=== PATIENT | female | born 1945 | race Caucasian/White ===

== ENCOUNTER 2016-09-15 21:02 | Emergency (ER) | payer MEDICARE ==
[~2016-09-15] VITALS: Ht 154.9 cm; Wt 73.5 kg
[~2016-09-15 21:02] MED LIST: CETI10CA19 PO; DILT180C51 PO; FISH1CAP28; FLUT16SP NS; IBUP200C62 PO; LACT1CAP72; LEVO125T71 PO; OMEP20TA24 PO; OSEL75CA PO; POLY30DR BOTH EYES; THRIVE VITAMINS PO; VENL150C42 PO
[2016-09-15 21:05] VITALS: Ht 154.9 cm; Wt 73.5 kg
--- OUTSIDE RECORDS SUMMARY | 2016-09-15 21:06 | XMS REPORT | Continuity of Care Document ---
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 Name Role Phone ROSEANNE GARCIA MD Primary Care Physician [phone] Insurance Providers Guarantor Katherine Vo Address [address] [place] [address] CP Email [email or web address] Payer Medicarehumana Gold Hmo Policy Number [id number] Subscriber's Name Katherine Vo Relationship 16 Self Chief Complaint and Reason for Visit Chief Complaint Cough,Fever,Flu,URI Reason for Visit [id number] Problems Past Problems Medical Problem Onset Date Acute bacterial tonsillitis Unknown Forehead contusion Unknown Influenza A Unknown Proximal humerus fracture Unknown Medications Current Home Medications Medication Dose Units Route Directions Days Qty Instructions Start Date Cetirizine Hcl (Zyrtec) 10 Mg Capsule 10 Mg Oral Daily 12/09/15 Diltiazem Hcl (Cartia Xt) 180 Mg Capsule 180 Mg Oral Bedtime Fluticasone Propionate (Fluticasone Prop 50 Mcg/Actuation Nasal [place]) 120 [place]/16 G [place] 1 [place] Nasal As Needed 12/09/15 Ibuprofen 200 Mg Capsule 2 Cap Oral Every 4 Hours as needed for Pain 12/09/15 Lactobacillus Combo No.11 (Probiotic) 1 Each Cap.sprink 06/15/16 Levothyroxine Sodium 125 Mcg Tablet 125 Mcg Oral Daily 03/18/09 [place]-3 Fatty Acids/Fish Oil ([place] 3 1,000 Mg Softgel) 1 Each Capsule Unknown Dose 03/27/16 Omeprazole (Prilosec) 20 Mg Tablet. 20 Mg Oral Daily 03/18/09 Oseltamivir Phosphate (Tamiflu) 75 Mg Capsule 75 Mg Oral Twice A Day 5 Days 10 Capsule 06/15/16 Polyvinyl Alcohol/Povidone/Pf (Refresh Classic Eye Drops) 1 Each Droperette 1 Drop Both Eyes Daily as needed for Dry Eyes 12/09/15 Thrive Vitamins Tab Oral Daily 12/09/15 Venlafaxine Hcl (Effexor Xr) 150 Mg Cap.sr.24h 150 Mg Oral Bedtime 03/18/09 Social History Social History Problem Response Recorded Date/Time Onset Date Status Hx Alcohol Use No 12/09/2015 10:17am Not Applicable Not Applicable Tobacco Usage none 12/09/2015 10:35am Not Applicable Not Applicable Hospital Discharge Instructions No hospital discharge instructions. Plan of Care Discharge Date 06/15/16 11:53am Disposition 01 DISCHARGED HOME, SELF-CARE Condition at Discharge Stable Instructions/Education Provided Influenza (ED) Prescriptions See Medication Section Referrals ROSEANNE GARCIA MD Address: [address] [place] [address] [id number] Functional Status No functional status results. Allergies, Adverse Reactions, Alerts Allergen Type Severity Reaction Status Last Updated Cefaclor Allergy Unknown Active 06/15/16 Clindamycin Allergy Unknown Active 06/15/16 Amoxicillin Allergy Unknown Active 06/15/16 Immunizations Query Response on File Recorded Date/Time Hx Influenza Vaccination Y fall01/11/13 6:00pm Hx Pneumococcal Vaccination Y fall01/11/13 6:00pm Hx Tetanus, Diptheria, Pertussis N NOT CURRENT 01/11/13 6:00pm Hx Influenza Vaccination Y fall01/11/13 6:00pm Hx Tetanus, Diptheria, Pertussis N NOT CURRENT 01/11/13 6:00pm Hx Tetanus Toxoid Vaccination Yes 01/11/13 5:27pm Tdap Vaccine Hx NO SKIN DISRUPTIONS 12/09/15 9:23am Vital Signs Acute Vital Signs Vital Response Date/Time Temperature (Fahrenheit) 97.0 deg F (96.8 - 99.1) 06/15/2016 11:34am Temperature (Calculated Celsius) 36.46747 degrees C (36.0 - 37.3) 06/15/2016 11:34am Pulse Rate (adult) 73 bpm (60 - 100) 06/15/2016 11:34am Respiratory Rate 24 breaths/min (10 - 20) 03/27/2016 11:42am O2 Sat by Pulse Oximetry 95 % (90 - 100) 06/15/2016 11:34am Blood Pressure 135/82 mm Hg 06/15/2016 11:34am Height (Inches) 60.50 inches 06/15/2016 11:34am Weight (Kilograms) 75.700 kg 06/15/2016 11:34am Body Mass Index (BMI) 32.0 06/15/2016 11:34am Results Laboratory Results Test Name Result Units Flags Reference Collection Date/Time Result Date/ Time Comments Group A Streptococcus Screen NEGATIVE NEGATIVE 03/27/2016 11:56am 03/2016 12:12pm Influenza Type A Antigen POSITIVE H NEGATIVE 06/15/2016 11:43am 2016 11:58am If clinical symptoms do not support these results, consider ordering the "Respiratory Panel, PCR". Influenza Type B Antigen NEGATIVE NEGATIVE 06/15/2016 11:43am 2016 11:58am Negative for Flu B protein antigen. Assay sensitivity is 90%. Procedures Procedure Status Date Provider(s) Dxa bone density axial Completed 05/26/16 Encounters Encounter Location Arrival/Admit Date Discharge/Depart Date Attending Provider Departed Emergency Room [facility] 06/15/16 11:19am 06/15/16 11: 53am SUZI URBAN APRN Registered Clinic [facility] 05/26/16 1:25pm ROBYN NIEVES Departed Emergency Room [facility] 03/27/16 11:30am 03/27/16 12: 22pm SUZI URBAN APRN Recent Diagnosis
--- NOTE | 2016-09-15 21:20 | ERPDOC ---
Departure Disposition Decision Date: September 15, 2016 Disposition Decision Time: 21:51 (SUBHA NAVARRETE APRN) Disposition: 01 DISCHARGED HOME, SELF-CARE Impression Impression (SUBHA NAVARRETE APRN) Impression: Primary Impression: UTI (urinary tract infection) Severity: Mild (SUBHA NAVARRETE APRN) Condition: Stable Seen By: Mid-level only (SUBHA NAVARRETE APRN) Referrals: ROSEANNE GARCIA MD (PCP) Patient Instructions: Urinary Tract Infection in Women (ED) Problems/Meds/Labs Reviewed?: Yes Medications reviewed and manag: Yes (SUBHA NAVARRETE APRN) Additional Instructions: 1. Drink plenty of liquids to maintain hydration. 2. Take Pyridium three times daily as needed for bladder pain for 2 days 3. Return to see your doctor if you develop fever, abdominal pain, nausea/ vomiting. Follow up care ordered?: Yes Mental Status: Alert, Oriented (SUBHA NAVARRETE APRN) Scripts Phenazopyridine HCl (Pyridium) 100 Mg Tablet 95 MG PO TID for 2 Days, #6 TAB Prov: SUBHA NAVARRETE APRN 09/15/16 Nitrofurantoin Monohyd/M-Cryst (Macrobid 100 mg Capsule) 100 Mg Capsule 1 CAP PO BIDWM for 7 Days, #14 CAP Take 2 (100 mg) capsules, by mouth, twice daily with meals. Prov: SUBHA NAVARRETE APRN 09/15/16 HPI - Female General Stated Complaint: POSS UTI Time Seen by Provider: 21:15 Source: patient Exam Limitations: no limitations (SUBHA NAVARRETE APRN) Time Seen by Provider: 21:15 (COURTNEY HOWARD DO) HPI - Female Initial Comments Ms. Leavitt is a 71 year old spry female who developed dysuria yesterday. Today went to work around 1300 and felt like she would be okay, but symptoms became worse. Urine frequency increased. No fever. No n/v. No abdominal pain. 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 Occurred At: home Onset: Getting worse Duration: other (2 days) Severity/Quality: burning Location: urethral Radiation: none Activities at Onset: none Associated Symptoms: dysuria Hx of Similar Symptoms: Yes (SUBHA NAVARRETE APRN) Allergies: Coded Allergies: amoxicillin (Verified Allergy, Unknown, 09/15/16) cefaclor (Verified Allergy, Unknown, 09/15/16) clindamycin (Verified Allergy, Unknown, 09/15/16) Past History Past Medical History Metabolic: hypertension, hypothyroidism ENMT: other (macular degeneration) Hx Echocardiogram: No Respiratory: other (chronic bronchitis) Psychological: anxiety (SUBHA NAVARRETE APRN) Surgical History General: EGD, colonoscopy, gallbladder, hernia (SUBHA NAVARRETE APRN) Vaccines Hx Influenza Vaccination: Yes (fall) Hx Pneumococcal Vaccination: Yes (fall) Hx Tetanus, Diptheria, Pertuss: No (NOT CURRENT) (SUBHA NAVARRETE APRN) Social History Smoking Status: Never smoker Substance Use Type: does not use Alcohol Intake: none Current Occupational Status: employed (SUBHA NAVARRETE APRN) Review of Systems Constitutional Constitutional: DENIES: fever (SUBHA NAVARRETE PODOPEDIATRICIAN) Cardiovascular Cardiac: DENIES: chest pain (SUBHA NAVARRETE PODOPEDIATRICIAN) Pulmonary Respiratory: DENIES: dyspnea (USBHA NAVARRETE PODOPEDIATRICIAN) GI Upper Abdomen: DENIES: nausea, vomiting (SUBHA NAVARRETE PODOPEDIATRICIAN) General: cloudy urine, dysuria, frequency, DENIES: hematuria (SUBHA NAVARRETE PODOPEDIATRICIAN) Musculoskeletal General: pain (low back ), tenderness (SUBHA NAVARRETE PODOPEDIATRICIAN) Integumentary Skin: DENIES: rash (SUBHA NAVARRETE PODOPEDIATRICIAN) All other Systems All Other Systems: Reviewed and Negative (SUBHA NAVARRETE APRN) Physical Exam General General Nourishment: well nourished, well developed, appears stated age, no acute distress (SUBHA NAVARRETE APRN) Vitals and Pain First Documented Vital Signs Date Time Temp Pulse Resp B/P Pulse Ox O2 Delivery O2 Flow Rate FiO2 09/15/16 21:05 98.3 110 18 162/81 94 Room Air (COURTNEY HOWARD DO) Vitals and Pain Weight: Kilograms: Height (feet): 5 Height (inches): 60.50 Triage Pain Scale: (SUBHA NAVARRETE APRN) ENMT (brief) ENMT Brief: FOUND: mucosa moist (SUBHA NAVARRETE APRN) Respiratory (brief) Respiratory: FOUND: clear all archer, equal bilaterally (NAVARRETE,SUBHA PODOPEDIATRICIAN) Cardiovascular (brief) Cardiac: FOUND: regular rate, regular rhythm (NAVARRETE,SUBHA PODOPEDIATRICIAN) Abdomen (brief) Abdominal Brief: FOUND: bowel normo active x4, soft, NOT FOUND: tender (ROSALBA, SUBHA PODOPEDIATRICIAN) Lymphatic (brief) Lymphatic Brief: NOT FOUND: lymphedema (NAVARRETE,SUBHA PODOPEDIATRICIAN) Musculoskeletal (brief) Musculoskeletal Brief: NOT FOUND: tenderness (MAN NAVARRETEARA PODOPEDIATRICIAN) Integumentary (brief) Integumentary Brief: FOUND: dry, pink, warm, NOT FOUND: rash (NAVARRETE,SUBHA PODOPEDIATRICIAN) Psychiatric (brief) Psychiatric Brief: FOUND: alert, attentive, normal affect, oriented (SUBHA NAVARRETE PODOPEDIATRICIAN) Progress Results/Orders Orders Procedure Category Date Status Time UA, LAB 09/15/16 Complete Dip&Micro(Complete) & 21:20 Urine Culture МАРИЯ 09/15/16 In Process 21:44 Phenazopyridine Hcl PHA 09/15/16 Complete (Pyridium Eq.) 22:00 Nitrofurantoin PHA 09/15/16 Complete (Macrobid) (Macrobid) 22:00 Nitrofurantoin PHA 09/15/16 Complete (Perpack) (Macrobid 22:00 (COURTNEY HOWARD DO) Lab Results Laboratory Tests Test 09/15/16 21:20 Urine Collection Type Urine Color Yellow Urine Turbidity Cloudy Urine pH 5.5 Urine Specific [place] >=1.030 Urine Protein 2+ Urine Glucose (UA) Negative Urine Ketones Negative Urine Blood 3+ Urine Nitrite Positive Urine Bilirubin Negative Urine Urobilinogen 0.2EU/DL Urine Leukocyte Esterase Trace Urine RBC 50-200/HPF Urine WBC 50-200/HPF Urine WBC Clumps Moderate Urine Bacteria 2+ Urine Culture Indicated Cult reflexed &setup (COURTNEY HOWARD DO) Medications Current ED Medications Phenazopyridine HCl (Pyridium Eq.) 95 mg O ONCE PO ; Start 09/15/16 at 22:00; Stop 09/15/16 at 22:01; Status DC Nitrofurantoin Macrocrystals (Macrobid) 100 mg O ONCE PO ; Start 09/15/16 at 22: 00; Stop 09/15/16 at 22:00; Status DC Nitrofurantoin Macrocrystals (MACROBID (PrePack)) 1 pack O ONCE SENT HOME ; Start 09/15/16 at 22:00; Stop 09/15/16 at 22:01; Status DC (COURTNEY HOWARD DO) Progress Progress First dose of Macrobid given in addition to a dose of Pyridium in ED. Rx to follow. (SUBHA NAVARRETE APRN) SUBHA NAVARRETE APRN September 15, 2016 21:20 COURTNEY HOWARD DO September 15, 2016 22:08
[2016-09-15 21:30] LABS: BLOOD, URINE 3+ (NEGATIVE); COLOR,URINE YELLOW (YELLOW); LEUKOCYTE ESTERASE ,URINE TRACE (NEGATIVE); NITRITE,URINE POSITIVE (NEGATIVE); UROBILINOGEN,URINE 0.2 EU/DL (NORMAL)
[2016-09-15 21:42] LABS: WBC CLUMPS,URINE MODERATE; WBC,URINE 50-200 /HPF (0-5)
[2016-09-15 21:43] LABS: BACTERIA,URINE 2+ (NEGATIVE); RBC,URINE 50-200 /HPF (0-3)
[2016-09-15] MEDS ORDERED: PHEN-778 PO (21:49)
[2016-09-15] MEDS ORDERED: NITR100C4 PO (21:49)
[2016-09-15] MEDS ORDERED: PHENAZOPYRIDINE 95 MG TABLET PO ONE (22:00)
[2016-09-15] MEDS ORDERED: NITROFURANTOIN (Macrobid) 100mg CAP PO ONE (22:00)
[2016-09-15] MEDS ORDERED: MACROBID 100mg #2 (PrePack) SENT HOME ONE (22:00)
[2016-09-15 22:17] VITALS: BP 145/83; PULSE 104; RESP 18; TEMP 98.3; O2SAT 94
--- NOTE | 2016-09-15 22:17 | NUR ---
DEPART PT GIVEN DI FOR UTI, MACROBID, PYRIDIUM, F/U. RX/PREPAK PROVIDED FOR MACROBID AND PYRIDIUM. PT VERBALIZES UNDERSTANDING OF DI. QUESTIONS ASKED/ANSWERED - DENIES FURTHER QUESTIONS/NEEDS AT THIS TIME. PERSONAL BELONGINGS GATHERED. PT AMBULATED/ESCORTED TO ED EXIT - GAIT STABLE, NO SIGN OF DISTRESS.
== END 2016-09-15 22:17 | disposition home or self-care (01) ==
LOC: ED 21:02
DX: N39.0 Urinary tract infection, site not specified (principal)
CPT/HCPCS: 81001; 87086; 99283; A9270

== ENCOUNTER 2017-10-15 17:12 | Inpatient (IN) ==
[2017-10-15] MEDS ORDERED: MORPHINE SULFATE 4mg INJECTION IVP ONE (17:16)
[2017-10-15] MEDS ORDERED: PROCHLORPERAZINE 10 MG/2 ML INJECTION IVP ONE (17:16)
[2017-10-15] MEDS ORDERED: SALINE FLUSH 10ml SYRINGE IVF PRN (17:16)
[2017-10-15] MEDS ORDERED: ERTAPENEM 1 G in NS 100 ML IV ONE (17:26)
[2017-10-15] MEDS ORDERED: PANTOPRAZOLE 40 MG INJECTION IVP ONE (17:54)
[2017-10-15] MEDS ORDERED: FentaNYL 100 MCG/2 ML INJECTION IVP PRN (18:07)
[2017-10-15] MEDS ORDERED: FentaNYL 250 MCG/5 ML INJECTION ONE (18:08)
[2017-10-15] MEDS ORDERED: KETAMINE 500 MG/10 ML INJECTION ONE (18:09)
[2017-10-15] MEDS ORDERED: SUCCINYLCHOLINE 20mg/mL 10mL INJECTION ONE (18:09)
[2017-10-15] MEDS ORDERED: DiphenhydrAMINE 50 MG/ML INJECTION ONE (18:09)
[2017-10-15] MEDS ORDERED: DEXAMETHASONE 4 MG/ML INJECTION ONE (18:09)
[2017-10-15] MEDS ORDERED: ROCURONIUM 50 MG/5 ML INJECTION IVP ONE ×2 (18:09→20:56)
[2017-10-15] MEDS ORDERED: PROPOFOL 20 ML ONE (18:09)
--- NOTE | 2017-10-15 18:09 | Emergency Department Report ---
Abdominal Pain HPI - General Chief Complaint: Abdominal Pain Stated Complaint: ABDOMINAL PAIN Time Seen by Provider: 10/15/17 17:15 - History of Present Illness HPI narrative: 72-year-old female presents by EMS with severe abdominal pain. Patient had colonoscopy performed today and was uncomfortable afterwards. She was observed postop and then discharged home. She went to use the restroom while at home and felt a sudden increase in pain and called EMS to transport her back. She was given 100 g fentanyl to help with pain on transport. On arrival here she feels like her abdomen is distended, painful. - Related Data Home Medications Medication Instructions Recorded Confirmed Omeprazole 20 mg PO DAILY #0 03/18/09 10/15/17 Cholecalciferol (Vitamin D3) 2,000 unit PO DAILY 12/03/16 10/14/17 [Vitamin D3] dilTIAZem HCl [Cartia Xt] 180 mg PO HS 12/03/16 10/15/17 Estrace (estradiol) 1 mg tablet 1 tab PO DAILY tab 09/30/17 10/15/17 Zyrtec (Cetirizine) 10 mg capsule 1 tab PO DAILY cap 09/30/17 10/15/17 levothyroxine (Tirosint) 112 mcg 112 mcg PO DAILY 09/30/17 10/15/17 capsule multivit with 1 tab PO DAILY tab 09/30/17 10/15/17 hvnaqnyt-topp-ET-lutein 8 mg iron-400 mcg-300 mcg tablet vitamin B complex tablet 1 tab PO DAILY 09/30/17 10/15/17 vitamin E 200 unit capsule 200 unit PO DAILY 09/30/17 10/15/17 Venlafaxine XR [Effexor Xr] 1 cap PO HS 10/14/17 10/15/17 Calcium 600 + D [Caltrate + D] 2 tab PO DAILY 10/15/17 10/15/17 Allergies Allergy/AdvReac Type Severity Reaction Status Date / Time cefaclor Allergy Severe rash and Verified 10/15/17 07:11 hives clindamycin Allergy Severe rash and Verified 10/15/17 07:11 hives amoxicillin Allergy Intermediate Itching Verified 10/15/17 07:11 and rash Review of Systems All systems: reviewed and negative except as stated PFSH Patient Stated Medical History Other HEENT Yes: glasses Hypertension Yes Bronchitis Yes Pneumonia Yes: as a child Other Respiratory Yes: sleep study done-no sleep apnea Gastroesophageal Reflux Yes Disease Hx Urinary Tract Infection Yes Osteoarthritis Yes Depression Yes Post Menopausal Yes Medical History Updates: HL. HTN. Vit D deficiency. Hypothyroid. Allergic rhinitis. GERD. Depr Surgical History: 1. [place] [address] Burnette. 2. Bilateral inguinal hernia repair at sometime around [address] Burnette at [place], [place]. 3. Laparoscopic cholecystectomy at sometime around [address] Burnette at [place], [place]. 4. Total colonoscopy with biopsies on 06/24/[address] Brandon Burnette at [facility] [place] [facility] at [place], [place]. Pathology report diagnosis on this polyp was tubular adenoma. 5. Total colonoscopy on by Dr. Brandon Burnette at [facility] at [place], [place]. Postoperative diagnosis was history of colon polyps. 6. Total colonoscopy with biopsies on 07/12/[address] Brandon Burnette at [facility] [place] [facility] at [place], [place]. The patient did undergo some biopsies from the colon at a level 15 cm proximal to the anal verge which showed chronic nonspecific inflammation with hyperplastic changes. Family History: Family History (Last Updated 09/30/17 @ 13:15 by Izabella Villegas Eleazar) Mother Diabetes Stroke - Social History Smoking status: Never smoker second hand exposure: No Substance use type: does not use Alcohol intake frequency: holidays/special occasions only Household members: none Current occupational status: retired Physical Exam - Limitations Limitations: no limitations - General General appearance: alert Course Vital Signs Temperature 98.9 F 10/15/17 17:12 Pulse Rate 111 H 10/15/17 17:12 Respiratory Rate 22 10/15/17 17:12 Blood Pressure 154/90 H 10/15/17 17:12 Pulse Oximetry 95 10/15/17 17:12 Temperature 98.9 F 10/15/17 17:12 Pulse Rate 111 H 10/15/17 17:12 Respiratory Rate 24 10/15/17 18:03 Blood Pressure 154/90 H 10/15/17 17:12 Pulse Oximetry 95 10/15/17 17:12 Abdominal Pain - Lab Data Result diagrams: 10/15/17 17:38 10/15/17 17:38 Lab Results 10/15/17 10/15/17 Range/Units 17:38 17:38 WBC 11.4 H (4.5-11.0) T/MM3 RBC 4.47 (4.00-5.20) M/MM3 Hgb 14.0 (12-16) GM/DL Hct 41.3 (36-46) % MCV 92.4 (80-100) UM3 MCH 31.3 (26-34) UUG MCHC 33.9 (31-37) GM/DL RDW Std Deviation 45.4 (36.9-50.2) FL Plt Count 168 (130-400) T/MM3 MPV 11.5 (9.4-12.4) UM3 Immature Gran % (Auto) 0.2 (0.0-0.5) % Neut % (Auto) 84.8 H (33-66) % Lymph % (Auto) 8.5 L (23-45) % [place] % (Auto) 6.3 (0-9.0) % Eos % (Auto) 0.0 (0-4) % Baso % (Auto) 0.2 (0-2) % Neut # (Auto) 9.7 H (1.8-7.7) T/MM3 Lymph # (Auto) 1.0 (1-4.8) T/MM3 [place] # (Auto) 0.7 (0-0.8) T/MM3 Eos # (Auto) 0.0 (0-0.5) T/MM3 Baso # (Auto) 0.0 (0-0.2) T/MM3 Abs Immat Gran (auto) 0.02 (0.00-0.03) T/MM3 Plasma Lactate 3.0 H (0.6-2.2) MMOL/L Disposition Prescriptions: No Action Cholecalciferol (Vitamin D3) [Vitamin D3] 2,000 unit PO DAILY dilTIAZem HCl [Cartia Xt] 180 mg PO HS Venlafaxine XR [Effexor Xr] 1 cap PO HS Calcium 600 + D [Caltrate + D] 2 tab PO DAILY Omeprazole 20 mg PO DAILY #0 Zyrtec (Cetirizine) 10 mg capsule 1 tab PO DAILY cap multivit with dwcwmxom-jjkv-WI-lutein 8 mg iron-400 mcg-300 mcg tablet 1 tab PO DAILY tab vitamin B complex tablet 1 tab PO DAILY vitamin E 200 unit capsule 200 unit PO DAILY Estrace (estradiol) 1 mg tablet 1 tab PO DAILY tab levothyroxine (Tirosint) 112 mcg capsule 112 mcg PO DAILY Referrals: Anup Ferguson MD [Primary Care Provider] -
--- NOTE | 2017-10-15 18:16 | Anesthesia Preoperative Report ---
Anesthesia Preoperative Record - Date and Time Date: 10/15/17 Preoperative Diagnosis: ABDOMINAL PAIN Proposed Procedure: Exploratory Laparotomy NPO Since Date: 10/15/17 NPO Since Time: 16:00 (sprite. questionable NPO status) Allergies/Adverse Reactions: Allergies Allergy/AdvReac Type Severity Reaction Status Date / Time cefaclor Allergy Severe rash and Verified 10/15/17 07:11 hives clindamycin Allergy Severe rash and Verified 10/15/17 07:11 hives amoxicillin Allergy Intermediate Itching Verified 10/15/17 07:11 and rash - Vital Signs Vital Signs: Temperature 98.9 F 10/15/17 17:12 Pulse Rate 111 H 10/15/17 17:12 Respiratory Rate 16 10/15/17 18:11 Blood Pressure 154/90 H 10/15/17 17:12 Pulse Oximetry 95 10/15/17 17:12 Height and Weight: Height 5 ft 1 in Weight 75.2 kg - Medications Inpatient Medications: Current Medications Fentanyl (Fentanyl) 100 mcg IVP O PRN Last Admin: 10/15/17 18:11 Dose: 100 mcg Sodium Chloride (Normal Saline) 500 mls @ 500 mls/hr IV .Q1H ONE Stop: 10/15/17 18:15 Last Admin: 10/15/17 17:43 Dose: 500 mls/hr Sodium Chloride (Iv Flush) 10 - 80 ml IVF PRN PRN PRN Reason: Flushing Last Admin: 10/15/17 18:11 Dose: 70 ml Home Medications: Home Medications Medication Instructions Recorded Confirmed Type Omeprazole 20 mg PO DAILY #0 03/18/09 10/15/17 History Cholecalciferol (Vitamin D3) 2,000 unit PO DAILY 12/03/16 10/14/17 History [Vitamin D3] dilTIAZem HCl [Cartia Xt] 180 mg PO HS 12/03/16 10/15/17 History Estrace (estradiol) 1 mg tablet 1 tab PO DAILY tab 09/30/17 10/15/17 History Zyrtec (Cetirizine) 10 mg capsule 1 tab PO DAILY cap 09/30/17 10/15/17 History levothyroxine (Tirosint) 112 mcg 112 mcg PO DAILY 09/30/17 10/15/17 History capsule multivit with 1 tab PO DAILY tab 09/30/17 10/15/17 History vpdrigyg-duxp-XF-lutein 8 mg iron-400 mcg-300 mcg tablet vitamin B complex tablet 1 tab PO DAILY 09/30/17 10/15/17 History vitamin E 200 unit capsule 200 unit PO DAILY 09/30/17 10/15/17 History Venlafaxine XR [Effexor Xr] 1 cap PO HS 10/14/17 10/15/17 History Calcium 600 + D [Caltrate + D] 2 tab PO DAILY 10/15/17 10/15/17 History Is Patient on Beta Miguel?: No - Medical History Respiratory: Reports: Bronchitis, Pneumonia (as a child), Other (sleep study done-no sleep apnea) Cardiovascular: Reports: Hypertension Gastrointestional: Reports: Gastroesophageal Reflux Disease Neuro/Musculoskeletal: Reports: Back Problems (scoliosis), Depression Renal/Endocrine: Reports: Thyroid Disease Other History: DENIES: Anesthesia Reactions, Now, Blood Transfusions, Chemotherapy , Cancer, Hemophilia, Malignant Hyperthermia, Sickle Cell Disease, Other - Surgical History HEENT Surgeries: Reports: Eye Surgery (sty removal), Other (upper dentures/ lower partial) GI Surgery/Treatments: Reports: Cholecystectomy, Hernia Repair (bilateral inguinal) Musculoskeletal Surgery/Tx: Reports: Knee Arthroscopy (left knee meniscus tear) Reproductive Surgery/Treatment: Reports: Tubal Ligation Anesthesia Reactions: None Hx Family Anesthesia Reaction: No History of Motion Sickness: No - Social History Smoking Status: Never smoker Second Hand Exposure: No Substance Use Type: does not use Alcohol Intake Frequency: holidays/special occasions only - Pertinent Findings Laboratory: CBC and BMP 10/15/17 17:38 10/15/17 17:38 BMP 10/15/17 17:38 Sodium 143 Potassium 3.1 L Chloride 105 Carbon Dioxide 22 BUN 10.0 Creatinine 0.4 L Glucose 120 H Calcium 8.7 Liver Function 10/15/17 Range/Units 17:38 Total Bilirubin 1.10 (0.20-1.30) MG/DL AST 60 H (14-36) U/L Alkaline Phosphatase 81 (38-126) U/L Albumin 4.5 (3.5-5.0) g/dL EKG: Sinus Rhythm, Sinus Tachycardia - Physical Exam Respiratory Exam: Present: lungs clear, bilateral breath sounds equal Cardiovascular Exam: Present: regular rate and rhythm, no murmur - Airway Assessment Mallampati Score: II TMD: 2 Fingerbreadths Neck Extension: fair Teeth: upper dentures, partial lower dentures Overall Assessment: may be difficult intubation - ASA ASA Score: 2, E - Plan Anesthesia: General Inhalation Gases - Discussion Discussion: Discussed risks/options/alternatives of anesthesia and questions answered. Patient consents. Nursing pain assessment noted. Present for Discussion: children Attestation Statement: Prior to the delivery of any anesthetic medication, I examined the patient, developed the plan, obtained the patient's consent and discussed the risk and benefits of the procedure with the patient/guardian. - Additional Information Seen by Anesthesia: Yes
[2017-10-15] MEDS: LR 1,000 ML IV SCH ×2 (18:40→20:59)
--- NOTE | 2017-10-15 19:57 | History and Physical ---
HISTORY OF PRESENT ILLNESS This patient is 72 years old. This patient did undergo esophagogastroduodenoscopy with biopsies and total colonoscopy with polypectomy and argon beam coagulation of a polypectomy site at the colon on 10/15/[address] Estevez at [facility]. The patient did have 13 colon polyps removed at the time of this procedure. The procedure did seem to go well. No findings suspicious for perforation were noted at the time of the procedure. The patient did have some abdominal distention and some abdominal pain after the procedure. The patient was observed in the preoperative holding area at [facility] for a while after the procedure. Dr. Estevez did ask that the patient be kept in the hospital until her abdominal pain improved significantly or resolved. The patient was ultimately sent home from the preoperative holding area. The patient states she was still having abdominal pain at that time. The patient did go home. Her abdominal pain worsened after she was home. The patient did call an ambulance and was transported by ambulance back to [facility] Emergency Room. She stated that during evaluation at [facility] that she went in to use the bathroom after returning home and strained and felt a sudden increase in pain in her abdomen after this. She states that she called EMS at this time to bring her back to [facility]. The patient was given intravenous fentanyl during transport back to [facility]. When the CT scan of the abdomen and pelvis was performed at [facility], the patient was found to have a large amount of free air in the abdomen which is thought to indicate that the patient has a colon perforation. PAST MEDICAL HISTORY PREVIOUS OPERATIONS 1. Bilateral tubal ligation [place] [address] Brandon Burnette. 2. Bilateral inguinal hernia repair at sometime around [address] Brandon Burnette at [facility] at [place], [place]. 3. Laparoscopic cholecystectomy at sometime around [address] Brandon Burnette at [facility] at [place], [place]. 4. Total colonoscopy with biopsies on 06/24/[address] Brandon Burnette at [facility] at [place], [place]. Pathology report on this polyp was tubular adenoma. 5. Total colonoscopy on 07/07/[address] Brandon Burnette at [facility] at [place], [place]. Postoperative diagnosis was history of colon polyps. 6. Total colonoscopy with biopsies on 07/12/[address] Brandon Burnette at [facility] at [place], [place]. The patient did undergo some biopsies from the colon at a level 15 cm proximal to the anal verge which showed chronic nonspecific inflammation with hyperplastic changes. 7. Esophagogastroduodenoscopy with biopsies and total colonoscopy with polypectomy and argon beam coagulation of a polypectomy site at the colon on 05/[address] Estevez at [facility] at [place], [place]. The patient did have some gastric polyps. The patient had 13 colon polyps removed at this procedure. The patient had some mild sigmoid colon diverticulosis. The patient had some internal and external hemorrhoids. OTHER CURRENT MEDICAL PROBLEMS 1. Gastroesophageal reflux disease. 2. Gastric polyps. 3. Hypertension. 4. Perennial allergic rhinitis. 5. Hypothyroidism. 6. Depression. 7. Anxiety. 8. Macular degeneration. 9. Scoliosis. CURRENT MEDICATIONS 1. Omeprazole 20 mg one p.o. daily. 2. Effexor XR 150 mg p.o. at bedtime daily. 3. Vitamin D3 2000 units p.o. daily. 4. Diltiazem HCL 180 mg p.o. daily. 5. Estrace 1 mg one tablet p.o. daily. 6. Zyrtec 10 mg one capsule p.o. daily. 7. Levothyroxine 112 mcg one capsule p.o. daily. 8. Multivitamin with iron one p.o. daily. 9. Vitamin B complex one tablet p.o. daily. 10. Vitamin E 200 units one capsule p.o. daily. ALLERGY HISTORY 1. The patient states she is allergic to amoxicillin. 2. The patient states she is allergic to cefaclor. 3. The patient states she is allergic to clindamycin. PHYSICAL EXAM VITAL SIGNS: Temperature is 98.9 degrees Fahrenheit. Pulse is 111. Respiratory rate is 22. Blood pressure is 154/90. Oxygen saturation is 95% on room air. Height is 1.55 meters. Weight is 75.2 kg. BMI is 31.3 kg/m2. HEENT: No abnormality is noted. NECK: No neck masses. CHEST: Lung sounds are clear. BREASTS: Not examined. HEART: Regular rhythm. No murmurs. ABDOMEN: The abdomen is distended. There is severe tenderness in all four quadrants of the abdomen. The patient does have old laparoscopic cholecystectomy incision scars. RECTUM: Exam deferred. EXTREMITIES: No abnormality is noted. LABORATORY DATA White blood cell count is 11,400 with no bands. There are 84.8% neutrophils and 8.5% lymphocytes. Hemoglobin is 14. Hematocrit is 41.3. Serum sodium is 143. Serum potassium is 3.1. Plasma lactate is 3. IMAGING DATA CT scan of the abdomen and pelvis shows free air in the peritoneal cavity. IMPRESSION 1. Colon perforation. 2. Hypokalemia. 3. Gastroesophageal reflux disease. 4. Gastric polyps. 5. Hypertension. 6. Perennial allergic rhinitis. 7. Hypothyroidism. 8. Depression. 9. Anxiety. 10. Macular degeneration. 11. Scoliosis. PATIENT EDUCATION I did inform the patient that she does have a colon perforation. I did talk with the patient about undergoing exploratory laparotomy with treatment of the colon perforation. I did tell the patient that she might be able to undergo simple closure of the perforation site. I told the patient that she might need to undergo a colon resection with primary anastomosis. I did tell the patient that there is some chance that she could require a colostomy at the time of operation. Expected benefits of the operation were reviewed. Potential risks and complications were reviewed. The patient does wish to proceed. PLAN Exploratory laparotomy with treatment of colon perforation. The patient will have deep venous thrombosis prophylaxis with Lovenox and sequential compression devices. I did talk with the pharmacist about antibiotic choice in this patient who is allergic to amoxicillin, cefaclor and clindamycin. The pharmacist recommended Invanz as a choice for antibiotic treatment. An alternative would be Cipro and Flagyl. It was thought that Invanz might be the antibiotic of choice. The patient will be given antibiotic treatment preoperatively and postoperatively. ROSALEE
[2017-10-15] MEDS ORDERED: PHENYLEPHRINE INJ 10 MG/ML VIAL IV ONE (20:56)
[2017-10-15] MEDS ORDERED: NS 1,000 ML IV SCH (21:00)
[2017-10-15] MEDS ORDERED: SUGAMMADEX 200mg/2ml INJECTION IVP ONE (22:04)
[2017-10-15] MEDS ORDERED: ENOXAPARIN 40 MG/0.4 ML INJECTION SQ ONE (22:09)
--- NOTE | 2017-10-15 22:37 | General Surgery Procedure Note ---
Date of Procedure: 10/15/17 Surgeon: Herb Postoperative Diagnosis: Colon perforation Procedure: Colon resection Estimated Blood Loss: See Anesthesia Record.
[2017-10-15] MEDS: HYDROMORPHONE 2 MG/ML INJECTION IVP PRN ×2 (23:11→23:44)
[2017-10-15] MEDS ORDERED: DiphenhydrAMINE 50 MG/ML INJECTION IVP PRN (23:18)
[2017-10-15] MEDS ORDERED: ACETAMINOPHEN IV 1,000 MG/100 ML VIAL IV ONE (23:36)
--- NOTE | 2017-10-15 23:36 | Anesthesia Postoperative Note ---
- Date and Time Date: 10/15/17 Time: 23:36 - Status Patient Participated in Evaluation: Patient Participated in Person Vital Signs: Temperature 98.8 F 10/15/17 22:37 Pulse Rate 100 10/15/17 23:20 Respiratory Rate 18 10/15/17 23:20 Blood Pressure 121/72 10/15/17 23:20 Pulse Oximetry 96 10/15/17 23:20 Respiratory Function: Airway Patent Cardiovascular Function: Regular Pulse EKG: Sinus Rhythm Mental Status: Alert and Oriented Pain Intensity: 6 Hydration: IV Infusing Complications During Recover: None Apparent - Follow-Up Instructions Instructions: Per Surgeon
[2017-10-16] MEDS ORDERED: PROMETHAZINE 25 MG INJECTION IVP PRN (00:12)
[2017-10-16] MEDS ORDERED: ONDANSETRON 4 MG/2 ML INJECTION IVP PRN (00:12)
[2017-10-16] MEDS: D5-1/2NS with KCL 20mEq 1,000 ML IV SCH ×3 (00:17→22:14)
[2017-10-16] MEDS: FAMOTIDINE PB 20 MG/50 ML BAG IV SCH ×2 (00:23→12:00)
[2017-10-16] MEDS: MORPHINE SULFATE 10mg/ml INJECTION IV PRN ×5 (00:47→19:44)
[2017-10-16] MEDS: ERTAPENEM 1 G in NS 100 ML IV SCH (09:04)
--- NOTE | 2017-10-16 13:47 | Operative Note ---
DATE OF OPERATION 10/15/2017 PREOPERATIVE DIAGNOSIS Colon perforation. POSTOPERATIVE DIAGNOSES 1. Colon perforation. 2. Intraabdominal adhesions. OPERATION Exploratory laparotomy, lysis of intraabdominal adhesions, mobilization of splenic flexure of colon, resection of distal transverse colon and descending colon and primary anastomosis. SURGEON Dr. Estevez [employer] JOINTER Dr. Caban ANESTHESIA General. ASA Class 2E FINDINGS The patient did have some adhesions of greater omentum to the anterior abdominal wall parietal peritoneum at the infraumbilical area. This was thought to probably be from a previous bilateral tubal ligation operation. The gallbladder was absent as a result of previous operative removal. The patient had undergone a previous laparoscopic cholecystectomy operation. The patient did have some adhesions of greater omentum to the margin of the liver and to the gallbladder bed area. The patient did appear to have a perforation site at the distal transverse colon. There was a tiny 2-mm opening at the serosal surface of the colon at this area. The patient had undergone a total colonoscopy with polypectomy with argon beam coagulation at the base of one of the polypectomy sites earlier in the day on 10/15/2017. It was thought at the time of operation that this perforation site was probably at one of the polypectomy sites. It was thought the perforation site was probably at the site where the largest polyp had been removed at a level 80 cm proximal to the anal verge with coagulation of a bleeding point at the base of the polypectomy site with argon beam coagulation. There was no large opening in the colon anywhere. There was just this small opening. There was some localized peritonitis at the left upper quadrant of the abdomen and the left mid abdomen area. There was some serous fluid at this area. There was a little bit of fibrinous exudate at this area. There was no spillage of stool into the peritoneal cavity. There was no rajan pus. There was, however, localized peritonitis at this area. This was thought to be associated with this perforation site. When the colon at the perforation site was manipulated, a small amount of liquid gastrointestinal tract contents was able to be expressed out through this perforation site. This was thought to help confirm that this was the perforation site. There did not appear to be any localized peritonitis at the right side of the abdomen anywhere around the ascending colon or hepatic flexure. It was also noted that there was no localized peritonitis found at the sigmoid colon or pelvic cul-de-sac area. The entire colon was run from the cecum all the way around to the rectosigmoid junction. No other perforation sites were found anywhere beyond the one at the distal transverse colon as the entire colon was examined from one end to the other. The appendix appeared normal. DESCRIPTION OF OPERATION The patient was placed in supine position on the operating table. General anesthesia was satisfactorily induced. The abdomen was prepped and draped in routine sterile fashion. A midline vertically oriented abdominal incision was made and extended through the abdominal wall. The peritoneal cavity was entered. Some adhesions binding greater omentum to the anterior abdominal wall parietal peritoneum inferior to the umbilicus were divided. The Isiah wound protector was placed at the incision. The Codman retractor was assembled and used to provide exposure. Some adhesions binding greater omentum to the margin of the liver and the gallbladder bed area were divided. The peritoneal cavity was explored at this time with findings as described above. The perforation site at the distal transverse colon was identified. The splenic flexure of the colon was mobilized. The greater omentum was from the distal half of the transverse colon. Peritoneum was divided along the white line of Toldt at the left lateral gutter. The splenic flexure of the colon was mobilized. A decision was made to resect the distal transverse colon and descending colon and perform a primary anastomosis. A distal resection margin was selected at the junction of the descending colon and the sigmoid colon. The left colic artery was identified. A good strong pulse in the left colic artery was able to be detected at examination of the colon mesentery. A distal resection margin was selected just proximal to this left colic artery to preserve the left colic artery as a blood supply up to the distal end of colon that would be used for the anastomosis. The colon was divided at the distal resection margin with the Ethicon brand TLC75 linear cutter stapler. Mesentery was divided beneath some of the descending colon. This was done by doubly clamping the mesentery with right angle clamps, dividing the mesentery between right angle clamps and ligating the mesentery with 0-Vicryl ligatures. It was noted at this time that there was some oozing of blood from the inferior margin of the spleen. This was from the surface of the spleen at the inferior margin of the spleen. This was just some venous oozing. Some Surgicel was placed over this area at the inferior surface of the spleen and a lap pad was packed over this to control the bleeding. A proximal resection margin was then selected at the mid transverse colon. This proximal resection margin was selected just to the left side of the middle colic blood vessels which were preserved to provide a good blood supply to the colon at the proximal resection margin. The colon was divided at the proximal resection margin with the Ethicon brand TLC75 linear cutter stapler. Mesentery at the distal half of the transverse colon was divided by doubly clamping the mesentery with right angle clamps, dividing the mesentery between clamps and ligating the mesentery with 0-Vicryl ligatures. This distal half of the transverse colon which was being resected did contain the perforation site. The remaining mesentery beneath the splenic flexure of the colon was divided by doubly clamping the mesentery with right angle clamps, dividing the mesentery between right angle clamps and ligating the mesentery with 0-Vicryl ligatures. The segment of distal transverse colon and descending colon along with the underlying mesentery was handed off as a specimen for study by the pathologist. The end of mid transverse colon was then anastomosed to the end of proximal sigmoid colon with a functional end-to-end anastomosis using the TLC75 linear cutter stapler and the Ethicon TX60B stapler. The internal staple lines were examined as the anastomosis was performed and they appeared to be satisfactory. There appeared to be a good blood supply to the anastomosis. The middle colic artery had been preserved as the blood supply to the proximal end of the anastomosis. The left colic artery had been preserved as a blood supply to the distal end of colon used for the anastomosis. There appeared to be a good lumen at the anastomosis. There did not appear to be any tension on the anastomosis. The crotch of the anastomosis was reinforced with a couple of simple interrupted seromuscular stitches using 3-0 Vicryl suture. The opening in the mesentery beneath the anastomosis was closed with a continuous simple [id number] stitch using 3-0 PDS suture. The lap pad which had been placed over the distal end of the spleen was removed and the spleen was examined. Hemostasis appeared to be satisfactory at the inferior surface of the spleen where there had previously been some oozing. The Surgicel was left in place. Irrigation had been performed throughout the left lateral gutter earlier during the operation. The greater omentum was brought down over the anastomosis and beneath the abdominal incision. The Codman retractor was removed. The Isiah wound protector which had been used throughout the operation was removed at this time. The surgeon and elder assistant and scrub nurse all changed gowns and gloves at this time. New light handles were used. New sterile drapes were placed at the abdomen. A new dedicated set of sterile closing instruments was used at this time. The abdominal incision was then closed. The fascial layer of the incision was closed with a continuous simple [id number] stitch using #1 PDS suture. Skin margins at the incision were reapproximated with skin delaney. Sterile dressings were applied. Sponge, needle and instrument counts were all correct at the end of the operation. The patient did appear to tolerate the operation well. The patient was transferred from the operating room to the recovery room in stable condition. ROSALEE
--- NOTE | 2017-10-16 13:59 | Progress Note ---
DATE 10/16/2017 POSTOP DAY #1 HISTORY The patient is in a bed in the intensive care unit at this time. She is alert and oriented. She has been up out of bed ambulating in her room in the intensive care unit. She has good postoperative pain control. She has the usual postoperative incisional discomfort. INTAKE AND OUTPUT Urine output appears be good. PHYSICAL EXAMINATION VITAL SIGNS: Pulse is 98. Respiratory rate is 14. Blood pressure is 107/73. Oxygen saturation is 98% on oxygen at 2 liters per minute by nasal cannula. ABDOMEN: Dressings are left in place at the abdominal incision at this time. LABORATORY DATA White blood cell count was 7700 with 46 bands at 0443 hours this morning. Hemoglobin was 12.2. Hematocrit was 37.1. White blood cell count was 11,700 with 33 bands at 1127 hours today. Hemoglobin was 11.9. Hematocrit was 35.1. Serum electrolytes are normal. Serum creatinine is 0.6. Plasma lactate was 4.2 at 0443 hours. Repeat plasma lactate was 3.6 at 1127 hours. Procalcitonin was 4.98 at 1127 hours. IMPRESSION Doing well overall following exploratory laparotomy with resection of distal transverse and descending colon and primary anastomosis on 10/15/2017. PLAN Continue to monitor patient in the intensive care unit. Continue sequential compression devices for deep venous thrombosis prophylaxis. Continue intravenous Invanz. Advance activity as tolerated. Recheck laboratory studies tomorrow. Continue incentive spirometry. MTDD
[2017-10-16] MEDS: KETOROLAC 15 MG/ML INJECTION IVP PRN ×2 (15:01→22:12)
[2017-10-16] MEDS ORDERED: REFRESH CLASSIC Eye Drops 0.4ml EACH EYE PRN (18:59)
[2017-10-17] MEDS: FAMOTIDINE PB 20 MG/50 ML BAG IV SCH ×2 (00:03→11:30)
[2017-10-17] MEDS: MORPHINE SULFATE 10mg/ml INJECTION IV PRN ×2 (04:04→08:45)
[2017-10-17] MEDS: ERTAPENEM 1 G in NS 100 ML IV SCH (08:09)
--- NOTE | 2017-10-17 09:55 | CT Scan Report ---
Indication: abd pain,distention,s/pcolonoscopy PROCEDURE: CT abdomen pelvis wo con: Encounter: Initial Comparison: None Technique: Axial CT images were performed through the abdomen and pelvis without intravenous contrast. Coronal and sagittal two-dimensional reformats. Automated Exposure Control and Iterative Reconstruction dose reducing techniques were utilized. Findings: The lung bases show mild atelectasis. Moderate to large amount of free intraperitoneal air is seen in the ventral abdomen. Fatty infiltration of the liver. No bile duct dilatation. The gallbladder is surgically absent. The spleen, pancreas, adrenal glands and kidneys are within normal limits. Bladder is grossly normal. Uterus is unremarkable. The exact site of perforation is unclear. Bone windows are unremarkable. Impression: Moderate free intraperitoneal air which would most likely be due to a colonic perforation given the history of recent colonoscopy. The exact site of perforation is not clear. There is a preliminary report by [employer]. .
--- NOTE | 2017-10-17 11:47 | Progress Note ---
DATE 10/17/2017 POSTOP DAY #2 HISTORY The patient remains in the intensive care unit at this time. She has been up in her chair in her room in the intensive care unit. She has ambulated in her room in the intensive care unit. She has the usual postoperative incisional discomfort. The patient has been receiving intravenous Invanz. PHYSICAL EXAM VITAL SIGNS: Temperature is 98.9 degrees Fahrenheit oral. Pulse is 96. Respiratory rate is 14. Blood pressure is 133/63. Oxygen is 98% on oxygen at 2 liters per minute by nasal cannula. ABDOMEN: The abdominal incision looks good. LABORATORY DATA White blood cell count is 9100. Hemoglobin is 10.2. Hematocrit is 31. Differential was not performed today. Serum sodium is 141. Serum potassium is 3.5. Serum creatinine is 0.5. Serum lactate is 1.6. Procalcitonin is 3.14. INTAKE AND OUTPUT The patient has had a good urine output. She has a urine output of 40-50 mL per hour. IMPRESSION Doing well overall following exploratory laparotomy with resection of distal transverse and descending colon and primary anastomosis on 10/15/2017. PLAN 1. Transfer patient from intensive care unit out to the surgical unit today. 2. Continue sequential compression devices and Lovenox for deep venous thrombosis prophylaxis. 3. Continue intravenous Invanz. 4. Continue intravenous Pepcid for GI prophylaxis. 5. Discontinue Anaya catheter. 6. Continue incentive spirometry. MTDD
[2017-10-17] MEDS: D5-1/2NS with KCL 20mEq 1,000 ML IV SCH ×3 (11:58→21:48)
[2017-10-17] MEDS: KETOROLAC 15 MG/ML INJECTION IVP PRN ×2 (12:20→21:45)
[2017-10-17] MEDS: ACETAMINOPHEN 325 MG TABLET PO PRN (20:05)
[2017-10-18] MEDS: FAMOTIDINE PB 20 MG/50 ML BAG IV SCH ×2 (00:40→15:13)
[2017-10-18] MEDS: D5-1/2NS with KCL 20mEq 1,000 ML IV SCH ×3 (03:27→17:28)
[2017-10-18] MEDS: ENOXAPARIN 40 MG/0.4 ML INJECTION SQ SCH (09:53)
[2017-10-18] MEDS: ESTRADIOL 1 MG TABLET PO SCH (09:53)
[2017-10-18] MEDS: LEVOTHYROXINE 112 MCG TABLET PO SCH (09:53)
[2017-10-18] MEDS: ACETAMINOPHEN 325 MG TABLET PO PRN (09:54)
[2017-10-18] MEDS: ERTAPENEM 1 G in NS 100 ML IV SCH (10:02)
[2017-10-18] MEDS: KETOROLAC 15 MG/ML INJECTION IVP PRN ×2 (11:41→20:58)
[2017-10-18] MEDS ORDERED: POTASSIUM CHLORIDE IV SCH (19:00)
[2017-10-18] MEDS ORDERED: NS IV SCH (19:00)
[2017-10-19] MEDS: FAMOTIDINE PB 20 MG/50 ML BAG IV SCH ×2 (01:14→14:39)
[2017-10-19] MEDS: D5-1/2NS with KCL 20mEq 1,000 ML IV SCH ×3 (01:16→17:35)
[2017-10-19] MEDS ORDERED: POTASSIUM CHLORIDE IV SCH ×2 (08:00→11:00)
[2017-10-19] MEDS ORDERED: NS IV SCH ×2 (08:00→11:00)
--- NOTE | 2017-10-19 08:19 | Progress Note ---
DATE 10/18/2017 POSTOP DAY #3 HISTORY The patient is in a room in the Surgical Unit. She has been ambulating in her room. The nurses report that the patient has refused to ambulate in the halls. The patient has not passed any flatus yet since her operation. The patient reported that she was urinating every hour through the night last night. We did have the patient go into the bathroom and urinate at this time and she did urinate an amount of 600 ml. Residual urine was checked with a bladder scan immediately after this and there was only 35 ml of residual urine in the bladder. The patient therefore does not appear to be having any postoperative urinary retention. The patient has been receiving intravenous Invanz. PHYSICAL EXAM VITAL SIGNS: Temperature is 98.6 degrees Fahrenheit oral. Pulse is 82. Blood pressure is 142/72. Oxygen saturation is 95% on room air. ABDOMEN: The abdominal incision looks good. The abdomen is somewhat distended and tympanic at examination at this time. LABORATORY DATA White blood cell count is 8000 with no bands. Hemoglobin is 9.6. Hematocrit is 28.5. Serum sodium is 143. Serum potassium is 3.2. Serum creatinine is 0.5. Procalcitonin is 1.65. IMPRESSION 1. Doing well overall following exploratory laparotomy with resection of distal transverse colon and descending colon and primary anastomosis on 2017. 2. Mild hypokalemia. PLAN 1. Give the patient supplemental potassium chloride at this time to correct the mild hypokalemia. 2. Continue sequential compression devices and Lovenox for deep venous thrombosis prophylaxis. 3. Continue intravenous Invanz. 4. Continue intravenous Pepcid for GI prophylaxis. 5. Continue incentive spirometry. 6. I did encourage the patient to ambulate in the halls. [facility]
[2017-10-19] MEDS: ENOXAPARIN 40 MG/0.4 ML INJECTION SQ SCH (08:22)
[2017-10-19] MEDS: ESTRADIOL 1 MG TABLET PO SCH (08:23)
[2017-10-19] MEDS: LEVOTHYROXINE 112 MCG TABLET PO SCH (08:23)
[2017-10-19] MEDS: ERTAPENEM 1 G in NS 100 ML IV SCH (08:23)
[2017-10-19] MEDS ORDERED: LIDOCAINE IV SCH (11:00)
[2017-10-19] MEDS ORDERED: IBUPROFEN 200 MG TABLET PO PRN (16:55)
[2017-10-19] MEDS ORDERED: Oxycodone *IR* 5 MG TABLET PO PRN (16:55)
[2017-10-19] MEDS ORDERED: ACETAMINOPHEN 500 MG TABLET PO PRN (16:55)
[2017-10-20] MEDS: OMEPRAZOLE 20 MG CAPSULE PO SCH (05:55)
[2017-10-20] MEDS: ENOXAPARIN 40 MG/0.4 ML INJECTION SQ SCH (08:53)
[2017-10-20] MEDS: ERTAPENEM 1 G in NS 100 ML IV SCH (08:53)
[2017-10-20] MEDS: LEVOTHYROXINE 112 MCG TABLET PO SCH (08:53)
[2017-10-20] MEDS: ESTRADIOL 1 MG TABLET PO SCH (08:54)
--- NOTE | 2017-10-20 09:25 | Progress Note ---
DATE 10/19/2017 POSTOP DAY #4 HISTORY The patient has been ambulating in the halls today. The patient did have a couple of bowel movements today. The patient had a serum potassium of 3.5 this morning. She was given some additional supplemental potassium chloride intravenously during the day today. The patient has less incisional discomfort each day. PHYSICAL EXAM VITAL SIGNS: Temperature is 96.8 degrees Fahrenheit oral. Pulse is 78. Respiratory rate is 18. Blood pressure is 146/83. Oxygen saturation is 98% on room air. ABDOMEN: The abdominal incision looks good. There is still some distention and tympany at the abdomen at this time. LABORATORY DATA White blood cell count is 6700 with no bands. Hemoglobin is 9.8. Hematocrit is 29.7. Serum sodium was 144. Serum potassium was 3.5 this morning. Serum creatinine is 0.5. IMPRESSION 1. Doing well overall following exploratory laparotomy with resection of distal transverse colon and descending colon and primary anastomosis on 2017. 2. Improving hypokalemia. PLAN 1. Continue sequential compression devices and Lovenox for deep venous thrombosis prophylaxis. 2. Continue intravenous Invanz. 3. Discontinue the intravenous Pepcid and resume the omeprazole which the patient was taking preoperatively. 4. Discontinue intravenous Toradol and make oral analgesics such as oxycodone, Tylenol and ibuprofen available for pain control. 5. Continue ambulation in the halls. 6. Start full liquid diet with toast and crackers today. 7. Decrease rate of administration of intravenous fluids. MTDD
[2017-10-20] MEDS: D5-1/2NS with KCL 20mEq 1,000 ML IV SCH (13:21)
[2017-10-21] MEDS: OMEPRAZOLE 20 MG CAPSULE PO SCH (06:41)
[2017-10-21 07:06] VITALS: RESP 16
[2017-10-21] MEDS: ERTAPENEM 1 G in NS 100 ML IV SCH (08:12)
[2017-10-21] MEDS: ENOXAPARIN 40 MG/0.4 ML INJECTION SQ SCH (08:18)
[2017-10-21] MEDS: LEVOTHYROXINE 112 MCG TABLET PO SCH (08:18)
[2017-10-21] MEDS: ESTRADIOL 1 MG TABLET PO SCH (08:18)
[2017-10-21] MEDS: D5-1/2NS with KCL 20mEq 1,000 ML IV SCH (09:09)
--- NOTE | 2017-10-21 10:21 | Progress Note ---
DATE 10/20/2017 POSTOP DAY #5 HISTORY The patient has been tolerating the full liquid diet with toast and crackers which was started yesterday. The patient states today that she has not passed any flatus since her operation. The patient states that when she does go to the bathroom to urinate, she does have seepage of a little liquid stool from the rectum during urination. This is what she has referred to as having had some bowel movements since the operation. She has not had any bowel movements beyond this. The patient is ambulating. PHYSICAL EXAMINATION VITAL SIGNS: Temperature is 98.6 degrees Fahrenheit oral. Pulse is 75. Respiratory rate is 16. Blood pressure is 142/77. Oxygen saturation is 96% on room air. ABDOMEN: The abdominal incision looks good. LABORATORY DATA White blood cell count is 6000 with no bands. Hemoglobin is 10.3. Hematocrit is 30.6. Serum potassium is 3.7. Serum creatinine is 0.5. IMPRESSION 1. Doing well following exploratory laparotomy with resection of distal transverse colon and descending colon with primary anastomosis on 10/15/2017. 2. Resolution of hypokalemia. PLAN 1. Advance diet as tolerated. The patient will be given a soft diet for lunch. 2. Continue sequential compression devices and Lovenox for deep venous thrombosis prophylaxis. 3. Continue intravenous Invanz. 4. Continue ambulation. 5. I did talk with the patient about discharge from the hospital today. The patient does request to stay in the hospital one more day and see how she tolerates the advancement of her diet. ROSALEE
[2017-10-21 11:18] VITALS: BP 142/84; PULSE 75; TEMP 98.5; O2SAT 96
--- NOTE | 2017-10-21 14:30 | Progress Note ---
DATE 10/21/2017 POSTOP DAY #6 HISTORY The patient did have her diet advanced up to a soft diet at lunch yesterday. Diet has been advanced as tolerated after that. The patient has been tolerating her diet well. She states she has now been passing flatus during the last 24 hours. She has little incisional pain any more. She has not been taking any analgesics for her incisional pain. The patient is ambulating well. PHYSICAL EXAMINATION VITAL SIGNS: Temperature is 98.5 degrees Fahrenheit oral. Pulse is 75. Respiratory rate is 16. Blood pressure is 142/84. Oxygen saturation is 96% on room air. ABDOMEN: The abdominal incision looks good. IMPRESSION Doing well following exploratory laparotomy with resection of distal transverse colon and descending colon with primary anastomosis on 10/15/2017. PLAN Dismiss patient from [facility] today. DISCHARGE MEDICATIONS Resume medications which the patient was taking prior to admission to the hospital. DISCHARGE DISPOSITION Followup office visit with Dr. Estevez on 10/28/2017 at the office in [place] for a postoperative visit. ROSALEE
--- NOTE | 2017-10-23 11:49 | Discharge Summary ---
DISCHARGE DIAGNOSES 1. Colon perforation at polypectomy site. 2. Intraabdominal adhesions. 3. 13 tubular adenoma colon polyps removed at total colonoscopy on 10/15/2017. 4. Several additional small tubular adenoma colon polyps removed in segment of distal transverse colon and descending colon resected on 10/15/2017. 5. Personal history of tubular adenoma colon polyp removed in 2004. 6. Positive fecal occult blood test on 08/24/2017. 7. Mild sigmoid colon diverticulosis. 8. Internal and external hemorrhoids. 9. Benign fundic gland type gastric polyps with hyperplastic features. 10. Hypokalemia. 11. Gastroesophageal reflux disease. 12. Hypertension. 13. Hypothyroidism. 14. Perennial allergic rhinitis. 15. Depression. 16. Anxiety. 17. Macular degeneration. 18. Scoliosis. OPERATION Exploratory laparotomy, lysis of intraabdominal adhesions, mobilization of splenic flexure of colon, resection of distal transverse colon and descending colon and primary anastomosis on 10/15/2017. HOSPITAL COURSE This patient was admitted [facility] by Dr. Estevez on 10/15/2017. This patient had undergone esophagogastroduodenoscopy with biopsies and total colonoscopy with polypectomy and argon beam coagulation of a polypectomy site at the colon earlier in the day on 10/15/[address] Estevez at [facility]. The patient did have 13 colon polyps removed at the time of this procedure. The procedure had been performed because of a positive fecal occult blood test on 08/24/2017 and the personal history of the patient having a tubular adenoma colon polyp removed in 2004. The patient did have multiple small gastric polyps found at this procedure and four of the gastric polyps were removed and submitted for study by the pathologist. The patient had 13 colon polyps removed at the total colonoscopy procedure. Argon beam coagulation was used to control bleeding at one of the polypectomy sites at the colon at the time of the colonoscopy procedure. The patient had also been noted to have some minimal sigmoid colon diverticulosis and some internal and external hemorrhoids at the total colonoscopy procedure. The patient was brought back to [facility] emergency room by ambulance later in the day on 10/15/2017 with severe abdominal pain. The patient did undergo evaluation in the emergency room. White blood cell count was 11,400 with no bands. Hemoglobin was 14. Hematocrit was 41.3. Serum potassium was 3.1. Plasma lactate was 3. CT scan of the abdomen and pelvis performed at the time of evaluation in the emergency room did show free air in the peritoneal cavity. It was thought that the patient did have a perforation at the colon. The hypokalemia was noted. The patient was known to have chronic medical problems including gastroesophageal reflux disease, hypertension , perennial allergic rhinitis, hypothyroidism, depression, anxiety, macular degeneration and scoliosis. Dr. Estevez did talk with the pharmacist preoperatively about antibiotic choice in this patient who is ALLERGIC TO AMOXICILLIN, CEFACLOR AND CLINDAMYCIN. The pharmacist recommended Invanz as the antibiotic treatment of choice. The patient was therefore given some intravenous Invanz preoperatively at the emergency room. The patient was also given some Lovenox preoperatively for deep venous thrombosis prophylaxis. Plans were made to use sequential compression devices in the operating room and postoperatively. Plans were made to take the patient from the emergency room to the operating room to undergo exploratory laparotomy for treatment of the colon perforation. The patient did undergo exploratory laparotomy, lysis of intraabdominal adhesions, mobilization of the splenic flexure of the colon, resection of the distal transverse colon and descending colon and primary anastomosis by Dr. Estevez on 10/15/2017. Details of operative findings can be found in the dictated operative report in the chart. The patient did tolerate the operation well. The patient was transferred from the recovery room to the Intensive Care Unit to be observed in the Intensive Care Unit after the operation as a precautionary measure. On the first postoperative day, the patient was alert and oriented in her bed in the Intensive Care Unit. She had been up and out of bed, ambulating in her room in the Intensive Care Unit. The patient had good postoperative pain control. She had the usual postoperative incisional discomfort. Urine output was good. Pulse was 98. Vital signs were stable. Dressings were left in place at the abdominal incision. The white blood cell count was 7700 with 46 bands at 0043 hours on the morning of the first postoperative day. Hemoglobin was 12.2. Hematocrit was 37.1. White blood cell count was 11,700 with 33 bands at 1127 hours on the first postoperative day. Hemoglobin was 11.9. Hematocrit was 35.1. Serum electrolytes were normal at this time. Serum creatinine was 0.6. Plasma lactate was 4.2 at 0443 hours. Repeat plasma lactate was 3.6 at 1127 hours. Procalcitonin was 4.98 at 1127 hours. The patient continued to be monitored in the Intensive Care Unit. The patient was receiving intravenous Invanz postoperatively. The patient continued to have sequential compression devices for deep venous thrombosis prophylaxis. Incentive spirometry was being performed. On the second postoperative day, the patient remained in the Intensive Care Unit. She had been up in her chair in her room in the Intensive Care Unit. She was ambulating in her room in the Intensive Care Unit. The patient was receiving intravenous Invanz. Vital signs were all stable. The patient was afebrile. The abdominal incision looked good. White blood cell count was 9100. Differential was not performed. No bands were reported. Hemoglobin was 10.2. Hematocrit was 31. Serum potassium was 3.5. Serum lactate was 1.6. Procalcitonin was 3.14. The patient continued to have good urine output. The patient was transferred out of the Intensive Care Unit out to the surgical unit on the second postoperative day. Sequential compression devices and Lovenox were being used for deep venous thrombosis prophylaxis at this time. The patient was receiving intravenous Invanz. Intravenous Pepcid was being used for GI prophylaxis. The Anaya catheter was discontinued on the second postoperative day. Incentive spirometry was continued. On the third postoperative day, the patient was out on the surgical unit. She had been ambulating in her room. The patient was receiving intravenous Invanz. The patient was afebrile. Vital signs were stable. The abdominal incision looked good. The abdomen was somewhat distended and tympanic at examination. White blood cell count was 8000 with no bands. Hemoglobin was 9.6. Hematocrit was 28.5. Serum potassium was 3.2. Serum creatinine was 0.5. Procalcitonin was 1.65. The patient appeared to be doing well overall. The patient was known to have some mild hypokalemia. The patient was given supplemental potassium chloride at this time to correct the mild hypokalemia. Sequential compression devices and Lovenox were continued for deep venous thrombosis prophylaxis. Intravenous Pepcid was continued for GI prophylaxis. Intravenous Invanz was continued. Incentive spirometry was continued. Ambulation in the halls was encouraged. On the fourth postoperative day, the patient was ambulating in the halls. Serum potassium was 3.5. The patient was given some additional supplemental potassium chloride intravenously. The patient was having less incisional discomfort each day. The patient was afebrile. Vital signs were stable. The abdominal incision looked good. There was still some distention and tympany at the abdomen at examination. White blood cell count was 6700 with no bands. Hemoglobin was 9.8. Hematocrit was 29.7. Serum creatinine was 0.5. The hypokalemia was improving compared to the previous day. The patient was doing well overall. Sequential compression devices and Lovenox were continued for deep venous thrombosis prophylaxis. Intravenous Invanz was continued. The intravenous Pepcid was discontinued at this time. Omeprazole which the patient had been taking preoperatively was resumed at this time. The patient had been receiving some intravenous Toradol. The intravenous Toradol was discontinued at this time and oral analgesics such as oxycodone, Tylenol and ibuprofen were made available for pain control to transition the patient from intravenous analgesics to oral analgesics. Ambulation in the halls was continued. A full liquid diet with toast and crackers was started on the fourth postoperative day. Rate of administration of intravenous fluids was decreased. The patient on the fifth postoperative day was tolerating the full liquid diet with toast and crackers which had been started on the previous day. The patient did note that when she went to the bathroom to urinate she did have some seepage of some liquid stool from the rectum during the urination. The patient referred to this as having some bowel movements at this time. The patient was ambulating. The patient was afebrile. Vital signs were stable. The abdominal incision looked good. White blood cell count was 6000 with no bands. Hemoglobin was 10.3. Hematocrit was 30.6. Serum potassium was 3.7. Serum creatinine was 0.5. The hypokalemia appeared to be resolved. Diet was advanced as tolerated after this. The patient was given a soft diet for lunch on the fifth postoperative day. The diet was then eventually advanced on to a regular diet. Sequential compression devices and Lovenox were continued for deep venous thrombosis prophylaxis. Intravenous Invanz was continued. Ambulation was continued. Dr. Estevez did talk with the patient about discharge from the hospital on the fifth postoperative day. The patient did request to stay in the hospital for one more day to see how she would tolerate the advancement of her diet. On the sixth postoperative day, the patient was tolerating a regular diet. The patient stated that she had been passing flatus during the previous 24 hours. She had very little incisional pain. She was not taking any analgesics for incisional pain at this time. She was ambulating well. The patient was afebrile. Vital signs were stable. The abdominal incision looked good. The patient was dismissed from [facility] at this time in stable condition. Pathology report was returned on the specimens submitted at the time of the esophagogastroduodenoscopy with biopsies and total colonoscopy with polypectomy operation performed on 10/15/2017. Four gastric polyps were removed at esophagogastroduodenoscopy on 10/15/2017. These were found be benign fundic gland type polyps with hyperplastic features. The patient did have 13 colon polyps removed at total colonoscopy with polypectomy on 10/15/2017. Each of these 13 colon polyps was a tubular adenoma colon polyp. A pathology report was returned on the segment of distal transverse colon and descending colon resected on 10/15/2016. This did show a focal defect of the wall of the bowel with early acute serositis. This was thought to probably be a perforation site at a polypectomy site. The pathologist did find several additional small tubular adenoma colon polyps in the segment of distal transverse colon and descending colon which was resected. These were additional colon polyps found beyond the colon polyps which were removed at total colonoscopy. The pathologist described these as a few sessile polyps. These were found by the pathologist to be small tubular adenoma colon polyps. DISCHARGE MEDICATIONS 1. Omeprazole 20 mg one p.o. daily. 2. Effexor XR 150 mg p.o. at bedtime daily. 3. Vitamin D3 2000 units p.o. daily. 4. Diltiazem HCL 180 mg p.o. daily. 5. Estrace 1 mg one tablet p.o. daily. 6. Zyrtec 10 mg one capsule p.o. daily. 7. Levothyroxine 112 mcg one capsule p.o. daily. 8. Multivitamin with iron 1 p.o. daily. 9. Vitamin B complex 1 tablet p.o. daily. 10. Vitamin E 2000 units one capsule p.o. daily. DISCHARGE DISPOSITION Followup office visit with Dr. Estevez on 10/28/2017 at the [facility] office at [place], [place] for postoperative office visit. ROSALEE
== END 2017-10-21 12:25 | disposition home or self-care (01) | DRG 329 ==
LOC: ED 17:12 → SUR 18:30 → CCU 18:41 → NMC.PERIOP 18:45 → CCU 10-16 00:11 → OBSVTOIN 10-16 00:14 → SRG 10-17 13:12
PROVIDERS: ADMIT Surgery; ATTEND Surgery